=== PATIENT | female | born 1990 | race Caucasian/White ===

== ENCOUNTER 2017-04-01 04:47 | Emergency (ER) | payer BC ==
[2017-04-01 04:47] VITALS: BMI 24.3
[2017-04-01 04:58] VITALS: O2SAT 100
[2017-04-01 05:29] VITALS: BP 102/74; PULSE 98; RESP 18; TEMP 98.3
--- NOTE | 2017-04-01 05:29 | C.PDOC ---
History Of Present Illness 26 year old female presents to the ER with a complaint of nasal congestion and dry cough for the past 2 days. Patient notes she had an episode of nose bleed today which concerned her and prompted visit. Denies fever, sick contacts, or Hx of epistaxis. Time Seen by Provider: 04/01/17 05:00 Chief Complaint (Nursing): ENT Problem History Per: Patient History/Exam Limitations: None Onset/Duration Of Symptoms: Days Current Symptoms Are (Timing): Still Present Symptoms Have Been: Continuous Past Medical History Reviewed: Historical Data, Nursing Documentation, Vital Signs Vital Signs: Last Vital Signs Temp 98.3 F 04/01/17 05:27 Pulse 98 H 04/01/17 05:27 Resp 18 04/01/17 05:27 BP 102/74 04/01/17 05:27 Pulse Ox 100 04/01/17 05:30 - [facility] MANUAL ASSIST DELIV NEC (05/07/14) Family History: States: Unknown Family Hx - Social History Hx Alcohol Use: No Hx Substance Use: No - Immunization History Hx Tetanus Toxoid Vaccination: No Hx Influenza Vaccination: Yes Hx Pneumococcal Vaccination: No Review Of Systems Constitutional: Negative for: Fever ENT: Positive for: Nose Congestion, Other (Epistaxis) Respiratory: Positive for: Cough. Negative for: Sputum Physical Exam - Physical Exam Appears: Non-toxic, No Acute Distress Skin: Normal Color, Warm, Dry Head: Atraumatic, Normacephalic, No Other (Facial trauma) Eye(s): bilateral: Normal Inspection Ear(s): Bilateral: Normal Nose: Normal, No Septal Hematoma, No Other (Active bleeding, clots, hematoma) Oral Mucosa: Moist Throat: Normal, No Erythema, No Exudate Neck: Normal, Supple Chest: Symmetrical, No Tenderness Cardiovascular: Rhythm Regular Respiratory: Normal Breath Sounds, No Rales, No Rhonchi, No Wheezing Neurological/Psych: Oriented x3, Normal Speech ED Course And Treatment O2 Sat by Pulse Oximetry: 100 (room air) Pulse Ox Interpretation: Normal Progress Note: Patient is resting comfortably in the ER in no acute distress with no active bleeding in the ER. Patient reassured and discharged home with instructions to follow up with PMD or return to ER if symptoms worsen. Disposition Counseled Patient/Family Regarding: Diagnosis, Need For Followup - Disposition Referrals: Mynor Ayala MD [Medical Doctor] - Disposition: HOME/ ROUTINE Disposition Time: 05:27 Condition: STABLE Additional Instructions: Increase PO fluids Use saline nasal spray to moisturize nose May use vaseline as well for moisture Return to ER if worse Instructions: Nosebleed (ED), Upper Respiratory Infection (ED) Forms: [facility] ([place]) - Clinical Impression Clinical Impression: Upper respiratory infection, Epistaxis - PA / RETIREMENT ACTUARY / Resident Statement MD/DO has reviewed & agrees with the documentation as recorded. - Scribe Statement The provider has reviewed the documentation as recorded by the Scriblópez Stanley All medical record entries made by the Markiblópez were at my direction and personally dictated by me. I have reviewed the chart and agree that the record accurately reflects my personal performance of the history, physical exam, medical decision making, and the department course for this patient. I have also personally directed, reviewed, and agree with the discharge instructions and disposition.
== END 2017-04-01 05:45 | disposition home or self-care (01) ==
LOC: C.ER 04:47
DX: J06.9 Acute upper respiratory infection, unspecified (principal); R04.0 Epistaxis